=== PATIENT | female | born 2000 | race Caucasian/White ===

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

== ENCOUNTER 2022-05-09 15:33 | Emergency (ER) | payer MEDICAID ==
[~2022-05-09] VITALS: Ht 170.2 cm; Wt 60.0 kg
[2022-05-09 15:40] VITALS: BP 133/105
[2022-05-09] MEDS ORDERED: ketorolac trometh inj. 60 MG/2 ML VIAL IM ONE (17:30)
[2022-05-09] MEDS ORDERED: IBUP-1986 PO (17:36)
== END 2022-05-09 17:54 | disposition home or self-care (01) ==
LOC: ER 15:33
DX: M25.561 Pain in right knee (principal)
CPT/HCPCS: 29505; 73564; 96372; 99283; J1885; 29530